=== PATIENT | male | born 1955 | race American Indian/Alaskan Native ===

== ENCOUNTER 2021-11-23 09:17 | Emergency (ER) | payer MEDICARE, OTHER ==
[2021-11-23] MEDS ORDERED: SODIUM CHLORIDE 0.9% 1000 ML 1,000 ML IV ONE (09:27)
--- NOTE | 2021-11-23 09:32 | Emergency Department Report ---
ED General Adult HPI - General Stated complaint: CHEST PAIN Time Seen by Provider: 11/23/21 09:25 - History of Present Illness Initial comments: Patient presents by ambulance secondary to chest pain. He states that he has been having chest pain and abdominal pain for weeks. He states that he is an alcoholic. He has been drinking alcohol for the last month and a binge type fashion. He was hoping that drinking would make him better. He believes it might of made him worse. He believes that his pain might be contributed to the alcohol. Regardless, he is describing a sharp and burning chest pain and abdominal pain. The chest pain is burning in the central area and radiates down into the abdomen. There is no back pain associated with this. He denies trauma. Patient has not had cough or congestion. He has had no fevers or chills. There is no vomiting or diarrhea. Patient has not had melenic stool. EMS administered aspirin and nitro without symptomatic improvement. - Related Data Home Medications Medication Instructions Recorded Confirmed Last Taken Efavirenz/Emtricit/Tenofovr Df 1 each PO QDAY 09/11/13 09/11/13 08/28/13 [Atripla Tablet] Folic Acid 0.8 mg PO DAILY 09/11/13 09/11/13 08/28/13 diphenhydrAMINE [Benadryl] 25 mg PO QHS PRN 09/11/13 09/11/13 08/28/13 Genvoya Tablet PO DAILY 11/23/21 1 Day Ago ~11/22/21 Previous Rx's Medication Instructions Recorded Last Taken Type Gabapentin [Neurontin] 300 mg PO Q8H #90 capsule 09/21/13 Unknown Rx Pantoprazole [Protonix] 40 mg PO QDAY #30 tablet 11/23/21 Unknown Rx Sucralfate [Carafate] 1 gm PO ACHS #120 tablet 11/23/21 Unknown Rx Allergies Allergy/AdvReac Type Severity Reaction Status Date / Time aspirin Allergy STOMACH Verified 11/23/21 09:57 PAIN ED Review of Systems ROS: Stated complaint: CHEST PAIN Other details as noted in HPI Comment: All other systems reviewed and negative Constitutional: denies: fever Eyes: denies: vision change ENT: denies: epistaxis Respiratory: denies: cough Cardiovascular: as per HPI Endocrine: denies: unexplained weight loss Gastrointestinal: as per HPI Genitourinary: denies: dysuria Musculoskeletal: denies: back pain Skin: denies: rash Neurological: denies: headache Hematological/Lymphatic: denies: easy bruising ED Past Medical Hx - Past Medical History Hx Hypertension: No Hx Heart Attack/AMI: No Hx Congestive Heart Failure: No Hx Diabetes: No Hx Deep Vein Thrombosis: No Hx Asthma: No Hx COPD: Yes Hx HIV: Yes Additional medical history: Alcoholism - Surgical History Hx Coronary Stent: No Hx Pacemaker: No Hx Internal Defibrillator: No - Family History Family history: CAD/[place] (Father) - Social History Smoking Status: Current Every Day Smoker (We discussed tobacco cessation) Substance Use Type: Alcohol (Daily), Prescribed - Medications Home Medications: Home Medications Medication Instructions Recorded Confirmed Last Taken Type Efavirenz/Emtricit/Tenofovr Df 1 each PO QDAY 09/11/13 09/11/13 08/28/13 History [Atripla Tablet] Folic Acid 0.8 mg PO DAILY 09/11/13 09/11/13 08/28/13 History diphenhydrAMINE [Benadryl] 25 mg PO QHS PRN 09/11/13 09/11/13 08/28/13 History Gabapentin [Neurontin] 300 mg PO Q8H #90 capsule 09/21/13 11/23/21 Unknown Rx Genvoya Tablet PO DAILY 11/23/21 1 Day Ago History ~11/22/21 Pantoprazole [Protonix] 40 mg PO QDAY #30 tablet 11/23/21 Unknown Rx Sucralfate [Carafate] 1 gm PO ACHS #120 tablet 11/23/21 Unknown Rx ED Physical Exam - General Limitations: No Limitations, Other (Pulse ox noted and normal) General appearance: alert, in no apparent distress, cachectic - Head Head exam: Present: atraumatic, normocephalic - Eye Eye exam: Present: normal appearance, PERRL, EOMI. Absent: scleral icterus - ENT ENT exam: Present: normal orophraynx, normal external ear exam - Neck Neck exam: Present: normal inspection. Absent: meningismus - Respiratory Respiratory exam: Present: normal lung sounds bilaterally. Absent: respiratory distress - Cardiovascular Cardiovascular Exam: Present: regular rate, normal rhythm - GI/Abdominal GI/Abdominal exam: Present: soft, tenderness (Epigastric). Absent: distended, guarding, rebound, pulsatile mass - Extremities Exam Extremities exam: Present: normal capillary refill. Absent: calf tenderness - Back Exam Back exam: Absent: CVA tenderness (R), CVA tenderness (L) - Neurological Exam Neurological exam: Present: alert, oriented X3, CN II-XII intact. Absent: motor sensory deficit - Psychiatric Psychiatric exam: Present: normal affect, normal mood - Skin Skin exam: Present: warm, dry ED Course Vital Signs 11/23/21 11/23/21 11/23/21 09:37 09:41 09:45 Temperature 98.6 F 98.6 F Pulse Rate 81 79 80 Respiratory 22 16 16 Rate Blood Pressure 127/73 127/73 Blood Pressure 127/76 [Left] O2 Sat by Pulse 98 Oximetry 11/23/21 11/23/21 11/23/21 09:53 10:18 11:18 Temperature Pulse Rate Respiratory 16 18 Rate Blood Pressure Blood Pressure [Left] O2 Sat by Pulse 99 Oximetry - Reevaluation(s) Reevaluation #1: 11/23/21 09:30 EMS was met upon arrival. Field EKG was noted. IV and labs were ordered. Old records reviewed. Reevaluation #2: 11/23/21 11:22 Labs have been noted. We will repeat EKG and troponin for serial evaluation. Clinically, I do not believe this represents ACS. Reevaluation #3: 11/23/21 13:47 Repeat troponin was noted and normal. Patient was discharged. ED Medical Decision Making - Lab Data Result diagrams: 11/23/21 09:55 11/23/21 09:55 - EKG Data -: EKG Interpreted by Me - EKG Data 11/23/21 10:10 1000-EKG shows normal sinus rhythm at 80. QRS is normal at 95. QT corrected is normal at 451. Patient has no ST elevation to suggest STEMI. There is ST depression in 3 and aVF. Patient has T wave inversion in aVL. There is good R wave progression noted. T wave inversion is new when compared to an EKG from 2014. - Radiology Data Radiology results: report reviewed - Medical Decision Making Patient presented with chest pain of unclear etiology. Heart score was low at 3. He has 2 - troponins. I do not clinically believe this represents ACS. Patient was discharged. There was no radiographic evidence of pneumonia or pneumothorax. He did not have a wide mediastinum or pulse as it. I do not believe this represents aortic dissection. He had no risk factor for pulmonary embolism. He admitted that he thought this could be related to his binge alcohol consumption. It is conceivable. He does not have evidence of acute hepatitis or pancreatitis or liver failure. He is not jaundiced. Regardless, he was treated symptomatically and referred for outpatient evaluation and follow-up. Critical Care Time: No Critical care attestation.: If time is entered above; I have spent that time in minutes in the direct care of this critically ill patient, excluding procedure time. ED Disposition Clinical Impression: Substernal chest pain, Generalized abdominal pain, Alcohol abuse Disposition: HOME / SELF CARE / HOMELESS Is pt being admited?: No Condition: Stable Instructions: Nonspecific Chest Pain, Adult, Alcohol Abuse and Dependence Information, Adult, Alcohol Abuse and Nutrition, Pain Without a Known Cause Additional Instructions: Seek medical help to stop drinking alcohol. Go to AA. Return for problems. Follow-up with your family doctor or the referral doctor for recheck. Drink plenty of water. Avoid spicy foods. Prescriptions: Sucralfate [Carafate] 1 gm PO ACHS #120 tablet Pantoprazole [Protonix] 40 mg PO QDAY #30 tablet Referrals: PRIMARY CAREMD [Primary Care Provider] - 3-5 Days JOSE BULLOCK MD [Staff Physician] - 3-5 Days
[2021-11-23] MEDS ORDERED: fentaNYL 100 MCG/2 ML INJ IV ONE (09:59)
--- NOTE | 2021-11-23 10:22 | XRay Report ---
CHEST 1 VIEW, 11/23/2021 9:06 AM CLINICAL INFORMATION/INDICATION: Chest pain COMPARISON: Chest radiograph, 12/13/2018 and 05/19/2012 FINDINGS: SUPPORT DEVICES: None. HEART: The cardiac silhouette is normal in size. LUNGS/PLEURA: The lungs are hyperinflated. Chronic bilateral interstitial changes and scarring within the right upper lobe and left lung base are again noted with associated volume loss. No superimposed airspace disease or pleural effusion is visualized. ADDITIONAL FINDINGS: No additional acute findings. IMPRESSION: 1. Stable appearance of chronic interstitial change likely associated with COPD. 2. No radiographic evidence of acute superimposed process. Signer Name: Renee Dominguez MD Signed: 11/23/2021 10:17 AM Workstation Name: [id number]
[2021-11-23 10:29] LABS: Basophils # (Auto) 0.1 K/mm3 (0.0-0.1); Basophils % (Auto) 0.9 % (0.0-1.8); Eosinophils % (Auto) 0.5 % (0.0-4.3); Hematocrit 36.1 % (35.5-45.6); Hemoglobin 12.5 gm/dl (11.8-15.2); Lymphocytes # (Auto) 1.8 K/mm3 (1.2-5.4); Mean Corpuscular HGB Conc 35 % (32-34); Mean Corpuscular Volume 91 fl (84-94); Monocytes # (Auto) 1.2 K/mm3 (0.0-0.8); Monocytes % (Auto) 14.6 % (0.0-7.3); Platelet Count 315 K/mm3 (140-440); Red Blood Count 3.97 M/mm3 (3.65-5.03); Red Cell Distribution Width 14.2 % (13.2-15.2)
[2021-11-23 10:55] LABS: Alanine Aminotransferase 74 units/L (7-56); Albumin 3.7 g/dL (3.9-5); BUN/Creatinine Ratio 18; Blood Urea Nitrogen 14 mg/dL (9-20); Calcium 9.5 mg/dL (8.4-10.2); Hemolysis Index 10
[2021-11-23] MEDS ORDERED: KETOROLAC 30 MG/1 ML INJ IV ONE (13:01)
[2021-11-23 15:00] VITALS: BP 137/78
--- NOTE | 2021-11-24 11:50 | Electrocardiograph Report ---
[facility] Test Date: 2021-11-23 Test Time: 10:00:42 Pat Name: ABIDA RIVAS Department: Room: Gender: M [employer] Repairer: JULI : 1955 Requested By: RAMIREZ HANKINS Order Number: [id number] Reading MD: Krzysztof Crabtree Measurements Intervals [place] Rate: 80 P: 0 GA: 199 QRS: 68 QRSD: 95 T: 79 QT: 391 QTc: 451 Interpretive Statements Sinus rhythm No previous ECG available for comparison Electronically Signed On 11-24-2021 11:50:00 EST by Krzysztof Crabtree
== END 2021-11-23 15:04 | disposition home or self-care (01) ==
LOC: ED 09:17
DX: R07.89 Other chest pain (principal); R10.84 Generalized abdominal pain; F10.10 Alcohol abuse, uncomplicated; J44.9 Chronic obstructive pulmonary disease, unspecified; B20 Human immunodeficiency virus [HIV] disease; F17.200 Nicotine dependence, unspecified, uncomplicated; Z91.09 Other allergy status, other than to drugs and biological substances
CPT/HCPCS: 36415; 71045; 80053; 83690; 83735; 84484; 85025; 93005; 93010; 96374; 96375; 99284; J1885; J3010; J7030; 80320; Q0162; G0480

== ENCOUNTER 2022-04-16 15:53 | Emergency (ER) | payer MEDICARE ==
[2022-04-16] MEDS ORDERED: SODIUM CHLORIDE 0.9% 1000 ML 1,000 ML IV ONE (19:06)
--- NOTE | 2022-04-16 19:09 | Emergency Department Report ---
ED General Adult HPI - General Chief complaint: Abdominal Pain Stated complaint: UPPER AND LOWER GI BLEED Time Seen by Provider: 04/16/22 18:05 Source: EMS Mode of arrival: Stretcher Limitations: No Limitations - History of Present Illness Initial comments: The patient presents to the emergency department the chief complaint of abdominal pain that started 2 days ago. Patient states today that his abdominal pain worsened and then he began to have episodes of coughing which resulted in him spitting up blood. Patient states he has a history of ulcer and pancreatitis but denies a history of a ruptured ulcer. On initial evaluations the patient blood pressure is 89/60. He denies chest pain or headache. -: Sudden Location: abdomen Radiation: non-radiation Severity scale (0 -10): 6 Quality: sharp Consistency: constant Improves with: none Worsens with: none Associated Symptoms: denies other symptoms Treatments Prior to Arrival: none - Related Data Home Medications Medication Instructions Recorded Confirmed Last Taken Efavirenz/Emtricit/Tenofovr Df 1 each PO QDAY 09/11/13 09/11/13 08/28/13 [Atripla Tablet] Folic Acid 0.8 mg PO DAILY 09/11/13 09/11/13 08/28/13 diphenhydrAMINE [Benadryl] 25 mg PO QHS PRN 09/11/13 09/11/13 08/28/13 Genvoya Tablet PO DAILY 11/23/21 1 Day Ago ~11/22/21 Previous Rx's Medication Instructions Recorded Last Taken Type Gabapentin [Neurontin] 300 mg PO Q8H #90 capsule 09/21/13 Unknown Rx Pantoprazole [Protonix] 40 mg PO QDAY #30 tablet 11/23/21 Unknown Rx Sucralfate [Carafate] 1 gm PO ACHS #120 tablet 11/23/21 Unknown Rx Dicyclomine [Bentyl] 10 mg PO QID PRN #20 capsule 04/17/22 Unknown Rx Omeprazole Magnesium [PriLOSEC Otc] 20 mg PO QDAY #30 04/17/22 Unknown Rx Promethazine [Phenergan TAB] 25 mg PO Q6HR PRN #20 tab 04/17/22 Unknown Rx Allergies Allergy/AdvReac Type Severity Reaction Status Date / Time aspirin Allergy STOMACH Verified 11/23/21 09:57 PAIN ED Review of Systems ROS: Stated complaint: UPPER AND LOWER GI BLEED Other details as noted in HPI Constitutional: denies: chills, fever Eyes: denies: eye pain, eye discharge, vision change ENT: denies: ear pain, throat pain Respiratory: other (Hemoptysis). denies: cough, shortness of breath, wheezing Cardiovascular: denies: chest pain, palpitations Endocrine: no symptoms reported Gastrointestinal: abdominal pain. denies: nausea, diarrhea Genitourinary: denies: urgency, dysuria Musculoskeletal: denies: back pain, joint swelling, arthralgia Skin: denies: rash, lesions Neurological: denies: headache, weakness, paresthesias Psychiatric: denies: anxiety, depression Hematological/Lymphatic: denies: easy bleeding, easy bruising ED Past Medical Hx - Past Medical History Previous Medical History?: Yes Hx Hypertension: No Hx Heart Attack/AMI: No Hx Congestive Heart Failure: No Hx Diabetes: No Hx Deep Vein Thrombosis: No Hx Asthma: No Hx COPD: Yes Hx HIV: Yes Additional medical history: Alcoholism - Surgical History Hx Coronary Stent: No Hx Pacemaker: No Hx Internal Defibrillator: No - Social History Smoking Status: Current Every Day Smoker (We discussed tobacco cessation) Substance Use Type: Alcohol (Daily), Prescribed - Medications Home Medications: Home Medications Medication Instructions Recorded Confirmed Last Taken Type Efavirenz/Emtricit/Tenofovr Df 1 each PO QDAY 09/11/13 09/11/13 08/28/13 History [Atripla Tablet] Folic Acid 0.8 mg PO DAILY 09/11/13 09/11/13 08/28/13 History diphenhydrAMINE [Benadryl] 25 mg PO QHS PRN 09/11/13 09/11/13 08/28/13 History Gabapentin [Neurontin] 300 mg PO Q8H #90 capsule 09/21/13 11/23/21 Unknown Rx Genvoya Tablet PO DAILY 11/23/21 1 Day Ago History ~11/22/21 Pantoprazole [Protonix] 40 mg PO QDAY #30 tablet 11/23/21 Unknown Rx Sucralfate [Carafate] 1 gm PO ACHS #120 tablet 11/23/21 Unknown Rx Dicyclomine [Bentyl] 10 mg PO QID PRN #20 capsule 04/17/22 Unknown Rx Omeprazole Magnesium [PriLOSEC Otc] 20 mg PO QDAY #30 04/17/22 Unknown Rx Promethazine [Phenergan TAB] 25 mg PO Q6HR PRN #20 tab 04/17/22 Unknown Rx ED Physical Exam - General Limitations: No Limitations General appearance: alert, in no apparent distress - Head Head exam: Present: atraumatic, normocephalic - Eye Eye exam: Present: normal appearance, PERRL, EOMI - ENT ENT exam: Present: mucous membranes dry - Neck Neck exam: Present: normal inspection - Respiratory Respiratory exam: Present: normal lung sounds bilaterally. Absent: respiratory distress - Cardiovascular Cardiovascular Exam: Present: normal rhythm, tachycardia. Absent: systolic murmur, diastolic murmur, rubs, gallop - GI/Abdominal GI/Abdominal exam: Present: soft, tenderness, normal bowel sounds. Absent: distended - Rectal Rectal exam: Present: deferred - Extremities Exam Extremities exam: Present: normal inspection - Back Exam Back exam: Present: normal inspection - Neurological Exam Neurological exam: Present: alert, oriented X3, CN II-XII intact. Absent: motor sensory deficit - Psychiatric Psychiatric exam: Present: normal affect, normal mood - Skin Skin exam: Present: warm, dry, intact, normal color. Absent: rash ED Course Vital Signs 04/16/22 04/16/22 04/16/22 16:55 18:05 18:15 Temperature 98.2 F Pulse Rate 98 H 105 H 97 H Respiratory 18 18 17 Rate Blood Pressure 96/68 Blood Pressure 160/148 [Left] O2 Sat by Pulse 99 Oximetry 04/16/22 04/16/22 04/16/22 18:30 18:46 18:58 Temperature 97.7 F Pulse Rate 99 H 98 H 102 H Respiratory 17 20 15 Rate Blood Pressure 96/68 96/68 Blood Pressure 92/62 [Left] O2 Sat by Pulse 94 95 100 Oximetry 04/16/22 04/16/22 04/16/22 19:00 19:15 19:30 Temperature Pulse Rate 105 H 101 H 98 H Respiratory 18 21 21 Rate Blood Pressure 96/68 92/62 94/65 Blood Pressure [Left] O2 Sat by Pulse 95 98 Oximetry 04/16/22 04/16/22 04/16/22 19:45 20:00 20:16 Temperature Pulse Rate 92 H 88 93 H Respiratory 19 15 21 Rate Blood Pressure 103/68 103/68 83/60 Blood Pressure [Left] O2 Sat by Pulse 84 84 Oximetry 04/16/22 04/16/22 04/16/22 20:30 20:45 21:00 Temperature Pulse Rate 85 89 96 H Respiratory 15 18 16 Rate Blood Pressure 83/60 104/60 95/56 Blood Pressure [Left] O2 Sat by Pulse 95 98 92 Oximetry 04/16/22 04/16/22 04/16/22 21:26 21:30 21:46 Temperature Pulse Rate 92 H 89 86 Respiratory 20 18 Rate Blood Pressure 95/56 95/56 114/68 Blood Pressure [Left] O2 Sat by Pulse 99 100 Oximetry 04/16/22 04/16/22 04/16/22 22:00 22:15 22:30 Temperature Pulse Rate 87 88 89 Respiratory 22 18 18 Rate Blood Pressure 95/56 104/68 104/68 Blood Pressure [Left] O2 Sat by Pulse 91 96 Oximetry 04/16/22 04/16/22 04/16/22 22:45 23:00 23:16 Temperature Pulse Rate 86 90 86 Respiratory 19 17 21 Rate Blood Pressure 102/65 102/65 115/69 Blood Pressure [Left] O2 Sat by Pulse 94 Oximetry 04/16/22 04/16/22 04/17/22 23:30 23:45 00:00 Temperature Pulse Rate 84 86 79 Respiratory 18 17 16 Rate Blood Pressure 115/69 106/70 106/70 Blood Pressure [Left] O2 Sat by Pulse 95 98 Oximetry 04/17/22 04/17/22 04/17/22 00:12 00:15 00:30 Temperature Pulse Rate 86 87 Respiratory 22 14 18 Rate Blood Pressure 106/70 101/69 101/69 Blood Pressure [Left] O2 Sat by Pulse 98 97 98 Oximetry ED Medical Decision Making - Lab Data Result diagrams: 04/16/22 20:12 04/16/22 20:12 Lab Results 04/16/22 04/16/22 04/16/22 Range/Units 20:12 20:12 20:12 WBC 13.9 H (4.5-11.0) K/mm3 RBC 4.00 (3.65-5.03) M/mm3 Hgb 11.8 (11.8-15.2) gm/dl Hct 35.9 (35.5-45.6) % MCV 90 (84-94) fl MCH 30 (28-32) pg MCHC 33 (32-34) % RDW 13.1 L (13.2-15.2) % Plt Count 292 (140-440) K/mm3 Lymph % (Auto) 8.3 L (13.4-35.0) % [place] % (Auto) 12.0 H (0.0-7.3) % Eos % (Auto) 0.1 (0.0-4.3) % Baso % (Auto) 0.3 (0.0-1.8) % Lymph # (Auto) 1.1 L (1.2-5.4) K/mm3 [place] # (Auto) 1.7 H (0.0-0.8) K/mm3 Eos # (Auto) 0.0 (0.0-0.4) K/mm3 Baso # (Auto) 0.0 (0.0-0.1) K/mm3 Seg Neutrophils % 79.3 H (40.0-70.0) % Seg Neutrophils # 11.0 H (1.8-7.7) K/mm3 PT 14.8 (12.2-14.9) Sec. INR 1.04 (0.87-1.13) APTT 24.8 (24.2-36.6) Sec. Sodium 137 (137-145) mmol/L Potassium 4.3 (3.6-5.0) mmol/L Chloride 92.3 L (98-107) mmol/L Carbon Dioxide 33 H (22-30) mmol/L Anion Gap 16 mmol/L BUN 47 H (9-20) mg/dL Creatinine 1.2 (0.8-1.3) mg/dL Estimated GFR > 60 ml/min BUN/Creatinine Ratio 39 % Glucose 133 H (75-100) mg/dL Calcium 8.9 (8.4-10.2) mg/dL Total Bilirubin 0.40 (0.1-1.2) mg/dL AST 20 (5-40) units/L ALT 20 (7-56) units/L Alkaline Phosphatase 67 (35-129) units/L Troponin T (0.00-0.029) ng/mL NT-Pro-B Natriuret Pep (0-900) pg/mL Total Protein 6.8 (6.3-8.2) g/dL Albumin 3.4 L (3.9-5) g/dL Albumin/Globulin Ratio 1.0 % Lipase 57 (13-60) units/L Blood Type Antibody Screen 04/16/22 04/16/22 Range/Units 20:12 20:12 WBC (4.5-11.0) K/mm3 RBC (3.65-5.03) M/mm3 Hgb (11.8-15.2) gm/dl Hct (35.5-45.6) % MCV (84-94) fl MCH (28-32) pg MCHC (32-34) % RDW (13.2-15.2) % Plt Count (140-440) K/mm3 Lymph % (Auto) (13.4-35.0) % [place] % (Auto) (0.0-7.3) % Eos % (Auto) (0.0-4.3) % Baso % (Auto) (0.0-1.8) % Lymph # (Auto) (1.2-5.4) K/mm3 [place] # (Auto) (0.0-0.8) K/mm3 Eos # (Auto) (0.0-0.4) K/mm3 Baso # (Auto) (0.0-0.1) K/mm3 Seg Neutrophils % (40.0-70.0) % Seg Neutrophils # (1.8-7.7) K/mm3 PT (12.2-14.9) Sec. INR (0.87-1.13) APTT (24.2-36.6) Sec. Sodium (137-145) mmol/L Potassium (3.6-5.0) mmol/L Chloride (98-107) mmol/L Carbon Dioxide (22-30) mmol/L Anion Gap mmol/L BUN (9-20) mg/dL Creatinine (0.8-1.3) mg/dL Estimated GFR ml/min BUN/Creatinine Ratio % Glucose (75-100) mg/dL Calcium (8.4-10.2) mg/dL Total Bilirubin (0.1-1.2) mg/dL AST (5-40) units/L ALT (7-56) units/L Alkaline Phosphatase (35-129) units/L Troponin T < 0.010 (0.00-0.029) ng/mL NT-Pro-B Natriuret Pep 191.8 (0-900) pg/mL Total Protein (6.3-8.2) g/dL Albumin (3.9-5) g/dL Albumin/Globulin Ratio % Lipase (13-60) units/L Blood Type AB POSITIVE Antibody Screen Negative - EKG Data -: EKG Interpreted by Me EKG shows normal: sinus rhythm Rate: normal - Radiology Data Radiology results: report reviewed - Medical Decision Making Upon further discussion with the patient it was discovered that he is actually having diarrhea and not dark stools The patient's blood pressure responded to IV fluids Discussed admission with the patient but he politely declined Critical care attestation.: If time is entered above; I have spent that time in minutes in the direct care of this critically ill patient, excluding procedure time. ED Disposition Clinical Impression: Abdominal pain, Nausea & vomiting Disposition: 01 HOME / SELF CARE / HOMELESS Is pt being admited?: No Does the pt Need Aspirin: No Condition: Stable Instructions: Nausea and Vomiting, Adult, Abdominal Pain, Adult Additional Instructions: Return if worse Prescriptions: Omeprazole Magnesium [PriLOSEC Otc] 20 mg PO QDAY #30 Referrals: PRIMARY CAREMD [Primary Care Provider] - 3-5 Days JOSE BULLOCK MD [Staff Physician] - 3-5 Days Time of Disposition: 01:11
[2022-04-16 20:37] LABS: Basophils % (Auto) 0.3 % (0.0-1.8); Eosinophils % (Auto) 0.1 % (0.0-4.3); Hematocrit 35.9 % (35.5-45.6); Hemoglobin 11.8 gm/dl (11.8-15.2); Lymphocytes # (Auto) 1.1 K/mm3 (1.2-5.4); Lymphocytes % (Auto) 8.3 % (13.4-35.0); Mean Corpuscular HGB Conc 33 % (32-34); Mean Corpuscular Volume 90 fl (84-94); Monocytes # (Auto) 1.7 K/mm3 (0.0-0.8); Platelet Count 292 K/mm3 (140-440); Red Cell Distribution Width 13.1 % (13.2-15.2)
[2022-04-16 20:52] LABS: Alanine Aminotransferase 20 units/L (7-56); Albumin 3.4 g/dL (3.9-5); BUN/Creatinine Ratio 39; Blood Urea Nitrogen 47 mg/dL (9-20); Calcium 8.9 mg/dL (8.4-10.2); Hemolysis Index 23
[2022-04-16 21:06] LABS: INR 1.04 (0.87-1.13); Partial Thromboplastin Time 24.8 Sec. (24.2-36.6)
--- NOTE | 2022-04-16 21:54 | Cat Scan Report ---
Please see the report for the CTA chest performed concomitantly. Signer Name: Tej Stephen MD Signed: 04/16/2022 9:49 PM Workstation Name: [id number]
--- NOTE | 2022-04-16 21:55 | Cat Scan Report ---
CTA CHEST, ABDOMEN, AND PELVIS WITH IV CONTRAST INDICATION: Hemoptysis. Generalized abdominal pain with dark stools. TECHNIQUE: Axial CT images were obtained through the chest, abdomen, and pelvis before and after injection of 10 0 cc Omnipaque 350 IV contrast. 3 plane MIP reconstructions were produced. All CT scans at this [facility] are performed using CT dose reduction for ALARA by means of automated exposure control. COMPARISON: One view of the chest performed on 11/23/2021. CT chest with contrast from 06/26/2019. FINDINGS: Heart: No significant abnormality. No significant coronary artery calcification. Thoracic Aorta: Mild atherosclerotic calcification is seen without acute findings. Great Vessels: There is mild atherosclerotic calcification without acute findings. Pulmonary Arteries: No significant abnormality. Additional Chest Findings: Emphysema is noted bilaterally with right apical scarring. No acute findin gs. Abdominal Aorta: There is mild nonobstructive atherosclerosis without other significant abnormalities . Renal arteries: No significant abnormality. Celiac artery: No significant abnormality. Superior Mesenteric Artery: No significant abnormality. Inferior mesenteric artery: No significant abnormality. Right Iliac Arteries: There is moderate nonobstructive atherosclerosis without other significant abno rmalities. Left Iliac Arteries: There is moderate nonobstructive atherosclerosis without other significant abnor malities. Femoral Arteries: Mild nonobstructive atherosclerosis is seen bilaterally without other significant a bnormalities. Additional Abdominopelvic Findings: There is an unchanged enhancing mass located posteriorly along th e upper pole of the spleen that is most likely benign and measures up to 2.9 cm. There is cholelithia sis without evidence of acute cholecystitis. No other significant abnormality. Skeletal Structures: No significant abnormality. IMPRESSION: 1. No acute findings to explain the patient's hemoptysis, abdominal pain or dark stools. 2. Additional findings as above. Signer Name: Tej Stephen MD Signed: 04/16/2022 9:51 PM Workstation Name: [id number]
[2022-04-16] MEDS ORDERED: MORPHINE 4 MG/1 ML INJ IV ONE (23:15)
[2022-04-16] MEDS ORDERED: ONDANSETRON 4 MG/2 ML INJ IV ONE (23:15)
[2022-04-17] MEDS ORDERED: PANTOPRAZOLE 40 MG TAB PO ONE (01:11)
[2022-04-17 01:26] VITALS: BP 104/59
--- NOTE | 2022-04-17 10:08 | Electrocardiograph Report ---
Test Date: 2022-04-17 Test Time: 00:13:06 Pat Name: ABIDA RIVAS Department: Room: Gender: M Manager Activities: SARAH : 1955 Requested By: MARIA D JAQUEZ Order Number: [id number] Reading MD: Jose M Medina Measurements Intervals [place] Rate: 83 P: 82 [place]: 188 QRS: 3 QRSD: 100 T: 81 QT: 428 QTc: 503 Interpretive Statements Sinus rhythm Biatrial enlargement Prolonged QT interval Compared to ECG 11/23/2021 10:00:42 Atrial abnormality now present Prolonged QT interval now present Electronically Signed On 04-17-2022 10:07:51 EDT by Jose M Medina
== END 2022-04-17 01:37 | disposition home or self-care (01) ==
LOC: ED 15:53
DX: R10.9 Unspecified abdominal pain (principal); R11.2 Nausea with vomiting, unspecified; F17.200 Nicotine dependence, unspecified, uncomplicated; F10.20 Alcohol dependence, uncomplicated; Z88.6 Allergy status to analgesic agent
CPT/HCPCS: 36415; 71275; 74174; 80053; 83690; 83880; 84484; 85025; 85610; 85730; 86850; 86900; 86901; 93005; 96361; 96374; 96375; 99284; J2270; J2405; J7030; Q9967